=== PATIENT | female | born 1940 | race Caucasian/White ===

== ENCOUNTER 2019-06-13 12:55 | Emergency (ER) | payer MEDICARE, OTHER ==
[~2019-06-13] VITALS: Ht 152.4 cm; Wt 62.0 kg
[2019-06-13 13:07] VITALS: BP 131/103
== END 2019-06-13 15:04 | disposition home or self-care (01) ==
LOC: ER 12:56
DX: S93.492A Sprain of other ligament of left ankle, initial encounter (principal); X50.1XXA Overexertion from prolonged static or awkward postures, initial encounter; Y93.89 Activity, other specified; Y92.89 Other specified places as the place of occurrence of the external cause; Y99.8 Other external cause status
CPT/HCPCS: 73610; 73630; 99284

== ENCOUNTER 2020-02-06 20:39 | Emergency (ER) | payer MEDICARE, OTHER ==
[~2020-02-06] VITALS: Ht 152.4 cm; Wt 57.7 kg
[2020-02-06 21:22] VITALS: BP 162/65
== END 2020-02-06 21:15 | disposition home or self-care (01) ==
LOC: ER 20:40
DX: S20.212A Contusion of left front wall of thorax, initial encounter (principal); Z85.9 Personal history of malignant neoplasm, unspecified; W19.XXXA Unspecified fall, initial encounter; Y93.89 Activity, other specified; Y92.89 Other specified places as the place of occurrence of the external cause; Y99.8 Other external cause status
CPT/HCPCS: 71101; 99284

== ENCOUNTER 2021-03-13 21:46 | Emergency (ER) | payer MEDICARE, OTHER ==
[~2021-03-13] VITALS: Ht 165.1 cm; Wt 131.0 kg
[2021-03-13 22:20] VITALS: BP 105/66
== END 2021-03-14 01:16 | disposition left against medical advice (07) ==
LOC: ER 21:47
DX: M79.605 Pain in left leg (principal); Z53.21 Procedure and treatment not carried out due to patient leaving prior to being seen by health care provider

== ENCOUNTER 2021-04-04 13:57 | Outpatient (CLI) | payer MEDICARE, OTHER | END 2021-04-04 23:59 | disposition home or self-care (01) | LOC: CARD DIAG 13:57 | PROVIDERS: ATTEND Internal Medicine Medical Oncology | DX: Z01.818 Encounter for other preprocedural examination (principal); C46.0 Kaposi's sarcoma of skin | CPT/HCPCS: 93306 ==

== ENCOUNTER 2021-08-24 10:14 | Emergency (ER) | payer MEDICARE, OTHER ==
[~2021-08-24] VITALS: Ht 152.4 cm; Wt 58.0 kg
[2021-08-24 10:31] VITALS: BP 145/39
[2021-08-24] MEDS ORDERED: CASIRIVIMAB/IMDEVIMAB inject. 10 ML in normal saline 100ml IV soln 100 ML IV ONE (13:45)
[2021-08-24] MEDS ORDERED: BAMLANIVIMAB 700MG, ETESEVIMAB 1,400MG in NS 100mL (Total vol 160ml) IV ONE (13:50)
[2021-08-24] MEDS ORDERED: BUDE180A INH (14:09)
[2021-08-24] MEDS ORDERED: DEXA6TAB6 PO (14:09)
== END 2021-08-24 16:07 | disposition home or self-care (01) ==
LOC: ER 10:14
DX: U07.1 COVID-19 (principal); J02.9 Acute pharyngitis, unspecified; R05.9 Cough, unspecified; Z85.9 Personal history of malignant neoplasm, unspecified; Z79.899 Other long term (current) drug therapy
CPT/HCPCS: 87635; 99284; C9803; M0245; Q0245; Q0239

== ENCOUNTER 2022-02-20 11:03 | Emergency (ER) | payer MEDICARE, OTHER ==
[~2022-02-20] VITALS: Ht 152.4 cm; Wt 60.9 kg
[~2022-02-20 11:03] MED LIST: BUDE180A INH; DEXA6TAB6 PO
[2022-02-20 12:13] LABS: BASOPHILS % (AUTO) 0.7 % (0-1); EOSINOPHILS # (AUTO) 0.2 X10'3 (0-0.9); EOSINOPHILS % (AUTO) 2.7 % (0-6); HEMATOCRIT 38.6 % (35.0-45.0); HEMOGLOBIN 12.7 g/dl (12.0-16.0); LYMPHOCYTES # (AUTO) 1.6 X10'3 (1.1-4.8); LYMPHOCYTES % (AUTO) 22.4 % (21-51); MEAN CORPUSCULAR HEMOGLOBIN 25.8 PG (27.0-31.0); MEAN CORPUSCULAR HGB CONC 32.9 g/dL (33.0-36.5); MEAN CORPUSCULAR VOLUME 78.5 FL (78-98); MEAN PLATELET VOLUME 7.4 FL (7.4-10.4); MONOCYTES # (AUTO) 0.6 X10'3 (0-0.9); MONOCYTES % (AUTO) 8.8 % (2-12); NEUTROPHILS # (AUTO) 4.5 X10'3 (1.8-7.7); NEUTROPHILS % (AUTO) 65.4 % (42-75); PLATELET COUNT 257 X10'3 (140-440); RED BLOOD COUNT 4.92 X10'6 (4.20-5.60); RED CELL DISTRIBUTION WIDTH 16.5 % (11.5-14.5); WHITE BLOOD COUNT 6.9 X10'3 (4.5-11.0)
--- NOTE | 2022-02-20 12:23 | NUR ---
PATIENT BACK FROM CT SCAN AT THIS TIME.
[2022-02-20 12:26] LABS: ALANINE AMINOTRANSFERASE 16 U/L (12-78); ALBUMIN 3.3 G/DL (3.4-5.0); ALBUMIN/GLOBULIN RATIO 0.7 (1.1-1.5); ALKALINE PHOSPHATASE 95 IU/L (46-116); ANION GAP 6 (8-16); ASPARTATE AMINO TRANSFERASE 15 U/L (10-37); BILIRUBIN,TOTAL 0.4 MG/DL (0.1-1.0); BLOOD UREA NITROGEN 35 MG/DL (7-18); BUN/CREATININE RATIO 19.9 (6.6-38.0); CALCIUM 9.1 MG/DL (8.5-10.1); CHLORIDE 101 MMOL/L (99-107); CREATININE 1.76 MG/DL (0.40-0.90); GLUCOSE 70 MG/DL (70-104); POTASSIUM 4.2 MMOL/L (3.5-5.1); SODIUM 133 MMOL/L (135-145); TOTAL CARBON DIOXIDE 26.4 MMOL/L (24-32); TOTAL PROTEIN 8.3 G/DL (6.4-8.2); eGFR 28 ML/MIN
[2022-02-20 13:25] LABS: CLARITY,URINE SLIGHTLY CLOUDY (Clear); GLUCOSE, URINE NEGATIVE (Neg); KETONES,URINE NEGATIVE (Neg); LEUKOCYTE ESTERASE ,URINE SMALL (Neg); NITRITES, URINE NEGATIVE (Neg); OCCULT BLOOD,URINE NEGATIVE (Neg); PH,URINE 6.5 (4.8-8.0); PROTEIN,URINE 30 mg/dl (Neg)
[2022-02-20] MEDS ORDERED: normal saline 1000ML IV soln IVB ONE (13:30)
[2022-02-20 13:31] LABS: COLOR,URINE YELLOW (Yellow); UA COLLECTION TYPE NON-SPECIFIED
[2022-02-20 13:33] LABS: MUCUS STRANDS NONE SEEN /LPF (Neg); RBC,URINE NONE SEEN /HPF (0-2); SQUAMOUS EPITHELIAL CELL,UR MODERATE /LPF (FEW); WBC,URINE 50-100 /HPF (0-4)
[2022-02-20 13:34] LABS: BACTERIA,URINE 2+ /HPF (Neg)
[2022-02-20] MEDS: cloNIDine 0.1 mg tablet PO SCH ×3 (13:52→13:59)
[2022-02-20 14:24] VITALS: BP 168/67
[2022-02-20] MEDS ORDERED: cephalexin 250mg capsule PO ONE (14:30)
[2022-02-20] MEDS ORDERED: CEPH-585 PO (14:32)
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
== END 2022-02-20 14:40 | disposition home or self-care (01) ==
LOC: ER 11:04
DX: S09.90XA Unspecified injury of head, initial encounter (principal); S00.03XA Contusion of scalp, initial encounter; S00.81XA Abrasion of other part of head, initial encounter; N39.0 Urinary tract infection, site not specified; I10 Essential (primary) hypertension; E78.00 Pure hypercholesterolemia, unspecified; E03.9 Hypothyroidism, unspecified; Z86.73 Personal history of transient ischemic attack (TIA), and cerebral infarction without residual deficits; Z85.9 Personal history of malignant neoplasm, unspecified; Z79.2 Long term (current) use of antibiotics; Z79.899 Other long term (current) drug therapy; W19.XXXA Unspecified fall, initial encounter; Y93.89 Activity, other specified; Y92.89 Other specified places as the place of occurrence of the external cause; Y99.8 Other external cause status
CPT/HCPCS: 36415; 70450; 80053; 81001; 85025; 87077; 87088; 87186; 99284; J7030

== ENCOUNTER 2022-11-07 11:16 | Emergency (ER) | payer MEDICARE, OTHER ==
[~2022-11-07] VITALS: Ht 149.9 cm; Wt 57.7 kg
[~2022-11-07 11:16] MED LIST changes: -BUDE180A INH; +CLOP75TA34 PO; -DEXA6TAB6 PO; +FURO20TA4 PO; +INSU100I5 SQ; +INSU200I SQ; +LEVO88TA7 PO; +NOR5T PO; +SIMV-42 PO
--- NOTE | 2022-11-07 11:35 | NUR ---
pt in ct when triage report received.
[2022-11-07] MEDS ORDERED: dextrose 50%-water 50ml dispensing syringe IV ONE (11:49)
[2022-11-07 11:52] LABS: BASOPHILS % (AUTO) 0.3 % (0-1); EOSINOPHILS # (AUTO) 0.1 X10'3 (0-0.9); EOSINOPHILS % (AUTO) 1.4 % (0-6); HEMATOCRIT 33.5 % (35.0-45.0); HEMOGLOBIN 11.1 g/dl (12.0-16.0); LYMPHOCYTES % (AUTO) 12.1 % (21-51); MEAN CORPUSCULAR HEMOGLOBIN 26.3 PG (27.0-31.0); MEAN CORPUSCULAR HGB CONC 33.2 g/dL (33.0-36.5); MEAN CORPUSCULAR VOLUME 79.3 FL (78-98); MEAN PLATELET VOLUME 8.4 FL (7.4-10.4); MONOCYTES # (AUTO) 0.1 X10'3 (0-0.9); MONOCYTES % (AUTO) 1.6 % (2-12); NEUTROPHILS # (AUTO) 7.2 X10'3 (1.8-7.7); NEUTROPHILS % (AUTO) 84.6 % (42-75); PLATELET COUNT 242 X10'3 (140-440); RED BLOOD COUNT 4.22 X10'6 (4.20-5.60); RED CELL DISTRIBUTION WIDTH 16.3 % (11.5-14.5); WHITE BLOOD COUNT 8.5 X10'3 (4.5-11.0)
--- NOTE | 2022-11-07 11:53 | NUR ---
Informed MD of pt with glucose of 50, received VO Dr. Coppola to administer 1 amp Dextrose IV x 1 now.
[2022-11-07 12:07] LABS: ALANINE AMINOTRANSFERASE 22 U/L (12-78); ALBUMIN 3.1 G/DL (3.4-5.0); ALBUMIN/GLOBULIN RATIO 0.9 (1.1-1.5); ALKALINE PHOSPHATASE 61 IU/L (46-116); ANION GAP 9 (8-16); ASPARTATE AMINO TRANSFERASE 27 U/L (10-37); BILIRUBIN,TOTAL 0.5 MG/DL (0.1-1.0); BLOOD UREA NITROGEN 38 MG/DL (7-18); BUN/CREATININE RATIO 21.5 (6.6-38.0); CALCIUM 8.1 MG/DL (8.5-10.1); CHLORIDE 104 MMOL/L (99-107); CREATININE 1.77 MG/DL (0.40-0.90); GLUCOSE 55 MG/DL (70-104); POTASSIUM 4.2 MMOL/L (3.5-5.1); SODIUM 139 MMOL/L (135-145); TOTAL CARBON DIOXIDE 26.4 MMOL/L (24-32); TOTAL PROTEIN 6.7 G/DL (6.4-8.2); eGFR 27 ML/MIN
[2022-11-07 12:25] LABS: APTT 24 SECONDS (22-32)
--- NOTE | 2022-11-07 12:40 | NUR ---
Pt being taken to MRI.
[2022-11-07 12:52] LABS: ANISOCYTOSIS 1+; ELLIPTOCYTES FEW; MICROCYTOSIS 1+; PLATELET ESTIMATE NORMAL
[2022-11-07 12:53] LABS: BURR CELLS FEW
--- NOTE | 2022-11-07 13:50 | NUR ---
Patient had sips of water with and without straw, tolerated well. No cough or shortness of breath after giving water.
--- NOTE | 2022-11-07 15:50 | NUR ---
PT ATE 1 YOGURT, 1 APPLESAUSE, 1 CHEESE SLICE AND WITH CARTON OF SKIM MILK TO DRINK.
[2022-11-07 17:44] VITALS: BP 146/62
== END 2022-11-07 17:30 | disposition home or self-care (01) ==
LOC: ER 11:17
DX: E16.2 Hypoglycemia, unspecified (principal); E78.00 Pure hypercholesterolemia, unspecified; I10 Essential (primary) hypertension; E03.9 Hypothyroidism, unspecified; Z88.8 Allergy status to other drugs, medicaments and biological substances
CPT/HCPCS: 36415; 70450; 70551; 71045; 80053; 82948; 84484; 85008; 85025; 85610; 85730; 93005; 96374; 99285; J3490; 70552; A6258

== ENCOUNTER 2022-12-27 07:17 | Emergency (ER) | payer MEDICARE, OTHER ==
[~2022-12-27] VITALS: Ht 152.4 cm; Wt 55.5 kg
[2022-12-27 08:16] LABS: EOSINOPHILS % (AUTO) 0.2 % (0-6); HEMOGLOBIN 8.3 g/dl (12.0-16.0); LYMPHOCYTES # (AUTO) 0.8 X10'3 (1.1-4.8); MONOCYTES # (AUTO) 1.4 X10'3 (0-0.9); MONOCYTES % (AUTO) 19.7 % (2-12); NEUTROPHILS # (AUTO) 4.9 X10'3 (1.8-7.7); PLATELET COUNT 86 X10'3 (140-440); WHITE BLOOD COUNT 7.1 X10'3 (4.5-11.0)
[2022-12-27 08:17] LABS: BASOPHILS % (AUTO) 0.5 % (0-1); HEMATOCRIT 25.2 % (35.0-45.0); LYMPHOCYTES % (AUTO) 11.6 % (21-51); MEAN CORPUSCULAR HEMOGLOBIN 25.7 PG (27.0-31.0); MEAN CORPUSCULAR HGB CONC 32.9 g/dL (33.0-36.5); MEAN CORPUSCULAR VOLUME 78.2 FL (78-98); MEAN PLATELET VOLUME 8.6 FL (7.4-10.4); RED BLOOD COUNT 3.22 X10'6 (4.20-5.60); RED CELL DISTRIBUTION WIDTH 19.3 % (11.5-14.5)
[2022-12-27 08:26] LABS: ALANINE AMINOTRANSFERASE 10 U/L (12-78); ALBUMIN 2.1 G/DL (3.4-5.0); ALBUMIN/GLOBULIN RATIO 0.6 (1.1-1.5); ALKALINE PHOSPHATASE 71 IU/L (46-116); ANION GAP 9 (8-16); ASPARTATE AMINO TRANSFERASE 20 U/L (10-37); BILIRUBIN,TOTAL 1.8 MG/DL (0.1-1.0); BLOOD UREA NITROGEN 34 MG/DL (7-18); BUN/CREATININE RATIO 18.9 (6.6-38.0); CALCIUM 7.9 MG/DL (8.5-10.1); CHLORIDE 97 MMOL/L (99-107); GLUCOSE 215 MG/DL (70-104); POTASSIUM 3.6 MMOL/L (3.5-5.1); SODIUM 130 MMOL/L (135-145); TOTAL CARBON DIOXIDE 24.4 MMOL/L (24-32); TOTAL PROTEIN 5.4 G/DL (6.4-8.2); eGFR 27 ML/MIN
[2022-12-27 09:44] LABS: ANISOCYTOSIS 2+; MICROCYTOSIS 1+; PLATELET ESTIMATE DECREASED; TOTAL CELLS COUNTED 100
[2022-12-27 09:45] LABS: ELLIPTOCYTES FEW; HYPOCHROMASIA 1+
[2022-12-27 09:48] LABS: BURR CELLS FEW
--- NOTE | 2022-12-27 10:12 | NUR ---
pt up to [facility]
--- NOTE | 2022-12-27 11:21 | NUR ---
Telephone call from BERNARD Choi, states she will see patient next. Dr Michele dow.
--- NOTE | 2022-12-27 11:29 | NUR ---
LEATHA FROM CASE MANAGEMENT CAN HELP SET UP WITH HOME HEALTH STATES SHE DOESN'T HAVE ADMITTING CRITERIA FOR THE HOSPITAL
--- NOTE | 2022-12-27 11:56 | NUR ---
PER DR MALLOY DO NOT STRAIGHT CATH FOR URINE SAMPLE, PT USED COMMODE BUT CONTAMINATED WITH FECES
--- NOTE | 2022-12-27 11:57 | NUR ---
Asked to arrange for some help w/ this pt at home. Pt does not have admitting criteria for the hospital so we could not refer her to short term rehab. H/H orders given to dcp for assignment. Continue to monitor.
--- NOTE | 2022-12-27 12:04 | NUR ---
CASE MANAGEMENT AT BEDSIDE
[2022-12-27 13:27] VITALS: BP 122/49
== END 2022-12-27 13:35 | disposition home or self-care (01) ==
LOC: ER 07:18
DX: R53.1 Weakness (principal); R42 Dizziness and giddiness; R05.9 Cough, unspecified
CPT/HCPCS: 36415; 71045; 80053; 83605; 84145; 85007; 85025; 87040; 93005; 99285

== ENCOUNTER 2023-08-03 23:39 | Inpatient (IN) | payer MEDICARE, OTHER ==
[~2023-08-03] VITALS: Ht 152.4 cm; Wt 53.2 kg
[2023-08-04 03:18] LABS: BASOPHILS # (AUTO) 0.1 X10'3 (0-0.2); BASOPHILS % (AUTO) 0.8 % (0-1); EOSINOPHILS # (AUTO) 0.2 X10'3 (0-0.9); EOSINOPHILS % (AUTO) 3.9 % (0-6); HEMATOCRIT 30.3 % (35.0-45.0); HEMOGLOBIN 9.8 g/dl (12.0-16.0); LYMPHOCYTES # (AUTO) 1.7 X10'3 (1.1-4.8); LYMPHOCYTES % (AUTO) 26.8 % (21-51); MEAN CORPUSCULAR HGB CONC 32.3 g/dL (33.0-36.5); MEAN CORPUSCULAR VOLUME 80.6 FL (78-98); MEAN PLATELET VOLUME 8.1 FL (7.4-10.4); MONOCYTES # (AUTO) 0.9 X10'3 (0-0.9); MONOCYTES % (AUTO) 14.7 % (2-12); NEUTROPHILS # (AUTO) 3.4 X10'3 (1.8-7.7); NEUTROPHILS % (AUTO) 53.8 % (42-75); PLATELET COUNT 236 X10'3 (140-440); RED BLOOD COUNT 3.76 X10'6 (4.20-5.60); RED CELL DISTRIBUTION WIDTH 15.2 % (11.5-14.5); WHITE BLOOD COUNT 6.3 X10'3 (4.5-11.0)
[2023-08-04 03:22] LABS: ALANINE AMINOTRANSFERASE 16 U/L (12-78); ALBUMIN 3.2 G/DL (3.4-5.0); ALBUMIN/GLOBULIN RATIO 0.7 (1.1-1.5); ALKALINE PHOSPHATASE 78 IU/L (46-116); ANION GAP 8 (8-16); ASPARTATE AMINO TRANSFERASE 17 U/L (10-37); BILIRUBIN,TOTAL 0.4 MG/DL (0.1-1.0); BLOOD UREA NITROGEN 50 MG/DL (7-18); BUN/CREATININE RATIO 21.6 (10.0-20.0); CALCIUM 9.9 MG/DL (8.5-10.1); CHLORIDE 101 MMOL/L (99-107); CREATININE 2.32 MG/DL (0.40-0.90); POTASSIUM 5.3 MMOL/L (3.5-5.1); SODIUM 128 MMOL/L (135-145); TOTAL CARBON DIOXIDE 19.5 MMOL/L (24-32); TOTAL PROTEIN 8.1 G/DL (6.4-8.2); eCRCL 13 ML/MIN; eGFR 20 ML/MIN
[2023-08-04 03:33] LABS: GLUCOSE 194 MG/DL (70-104)
[2023-08-04] MEDS ORDERED: normal saline 1000ML IV soln IVB ONE (05:00)
[2023-08-04 06:09] LABS: BILIRUBIN,URINE NEGATIVE (Neg); CLARITY,URINE SLIGHTLY CLOUDY (Clear); COLOR,URINE YELLOW (Yellow); GLUCOSE, URINE NEGATIVE (Neg); KETONES,URINE NEGATIVE (Neg); LEUKOCYTE ESTERASE ,URINE SMALL (Neg); NITRITES, URINE NEGATIVE (Neg); OCCULT BLOOD,URINE NEGATIVE (Neg); PH,URINE 5.5 (4.8-8.0); PROTEIN,URINE 30 mg/dl (Neg); UROBILINOGEN,URINE 0.2 E.U/dL (0.2-1.0)
[2023-08-04 06:10] LABS: UA COLLECTION TYPE CLN CATCH MIDSTREAM
[2023-08-04 06:18] LABS: MUCUS STRANDS FEW /LPF (Neg); SQUAMOUS EPITHELIAL CELL,UR FEW /LPF (FEW)
[2023-08-04 06:19] LABS: TRANSITIONAL EPI CELLS,URINE FEW /HPF
[2023-08-04 06:20] LABS: BACTERIA,URINE FEW /HPF (Neg); RBC,URINE NONE SEEN /HPF (0-2)
[2023-08-04] MEDS ORDERED: CefTRIAXone/D5W-Rocephin 1gm 50 ML IV STA (07:05)
[2023-08-04] MEDS: morphine 2 MG/ML inj. syringe IV PRN ×2 (08:59→17:29)
[2023-08-04] MEDS ORDERED: acetaminophen 325mg tablet PO PRN (09:20)
[2023-08-04] MEDS ORDERED: potassium Cl 40MEQ/1/2NS 520ml 520 ML IV PRN (09:20)
[2023-08-04] MEDS ORDERED: potassium Cl 20 mEq SR tablet PO PRN ×2 (09:20)
[2023-08-04] MEDS ORDERED: magnesium 4gm in 100ml NS 100 ML IV PRN (09:20)
[2023-08-04] MEDS ORDERED: magnesium Cl slow-release 64mg tablet PO PRN (09:20)
[2023-08-04] MEDS ORDERED: ondansetron/PF 4mg/2ml inj IV PRN (09:20)
[2023-08-04] MEDS ORDERED: magnesium 2GM in 50ml NS 50 ML IV PRN (09:20)
[2023-08-04 09:37] LABS: ALANINE AMINOTRANSFERASE 16 U/L (12-78); ALBUMIN 2.9 G/DL (3.4-5.0); ALBUMIN/GLOBULIN RATIO 0.7 (1.1-1.5); ALKALINE PHOSPHATASE 66 IU/L (46-116); ANION GAP 8 (8-16); ASPARTATE AMINO TRANSFERASE 12 U/L (10-37); BILIRUBIN,TOTAL 0.3 MG/DL (0.1-1.0); BLOOD UREA NITROGEN 48 MG/DL (7-18); BUN/CREATININE RATIO 21.1 (10.0-20.0); CALCIUM 9.1 MG/DL (8.5-10.1); CHLORIDE 106 MMOL/L (99-107); CREATININE 2.27 MG/DL (0.40-0.90); GLUCOSE 145 MG/DL (70-104); POTASSIUM 4.8 MMOL/L (3.5-5.1); SODIUM 134 MMOL/L (135-145); TOTAL CARBON DIOXIDE 19.8 MMOL/L (24-32); TOTAL PROTEIN 7.3 G/DL (6.4-8.2); eCRCL 13 ML/MIN; eGFR 20 ML/MIN
[2023-08-04] MEDS: normal saline 1000ml 1,000 ML IV SCH ×2 (12:17→19:20)
[2023-08-04] MEDS: K and/or MAG REPLACEMENT MC SCH (20:00)
[2023-08-05 07:08] LABS: BASOPHILS % (AUTO) 0.5 % (0-1); EOSINOPHILS # (AUTO) 0.3 X10'3 (0-0.9); EOSINOPHILS % (AUTO) 5.1 % (0-6); HEMATOCRIT 27.7 % (35.0-45.0); LYMPHOCYTES # (AUTO) 1.3 X10'3 (1.1-4.8); LYMPHOCYTES % (AUTO) 24.2 % (21-51); MEAN CORPUSCULAR HEMOGLOBIN 26.2 PG (27.0-31.0); MEAN CORPUSCULAR HGB CONC 32.6 g/dL (33.0-36.5); MEAN CORPUSCULAR VOLUME 80.3 FL (78-98); MONOCYTES # (AUTO) 0.8 X10'3 (0-0.9); MONOCYTES % (AUTO) 15.5 % (2-12); NEUTROPHILS # (AUTO) 2.9 X10'3 (1.8-7.7); NEUTROPHILS % (AUTO) 54.7 % (42-75); PLATELET COUNT 215 X10'3 (140-440); RED BLOOD COUNT 3.45 X10'6 (4.20-5.60); RED CELL DISTRIBUTION WIDTH 15.7 % (11.5-14.5); WHITE BLOOD COUNT 5.4 X10'3 (4.5-11.0)
[2023-08-05 07:14] LABS: ALBUMIN 2.5 G/DL (3.4-5.0); ANION GAP 8 (8-16); BLOOD UREA NITROGEN 44 MG/DL (7-18); BUN/CREATININE RATIO 22.1 (10.0-20.0); CHLORIDE 106 MMOL/L (99-107); CREATININE 1.99 MG/DL (0.40-0.90); GLUCOSE 144 MG/DL (70-104); MAGNESIUM 1.4 MG/DL (1.5-2.4); POTASSIUM 5.3 MMOL/L (3.5-5.1); SODIUM 133 MMOL/L (135-145); TOTAL CARBON DIOXIDE 18.6 MMOL/L (24-32); eCRCL 15 ML/MIN; eGFR 24 ML/MIN
[2023-08-05 08:23] LABS: SMUDGE CELLS FEW; TOTAL CELLS COUNTED 100
[2023-08-05 08:24] LABS: BURR CELLS FEW; ELLIPTOCYTES FEW; PLATELET ESTIMATE NORMAL
[2023-08-05] MEDS: K and/or MAG REPLACEMENT MC SCH (09:59)
[2023-08-05] MEDS: normal saline 1000ml 1,000 ML IV SCH ×2 (10:10→20:07)
[2023-08-05] MEDS ORDERED: INSU100I8 SQ (14:50)
[2023-08-05] MEDS ORDERED: AMLO5TAB16 PO (14:50)
[2023-08-05] MEDS ORDERED: CARV25TA56 PO (14:50)
[2023-08-06] MEDS: normal saline 1000ml 1,000 ML IV SCH ×3 (01:20→21:20)
[2023-08-06] MEDS ORDERED: MESSAGE TO PHARMACY PO ONE (01:45)
[2023-08-06] MEDS ORDERED: insulin Lispro (HumaLOG) vial - multi-dose SQ SCH (01:45)
[2023-08-06] MEDS ORDERED: DEXTROSE 15 GM of carb/4 tabs (each vial/BOTTLE has 4 tablets) PO PRN ×2 (01:45)
[2023-08-06] MEDS ORDERED: glucagon, human recombinant 1mg kit SUBCUT PRN (01:45)
[2023-08-06] MEDS ORDERED: dextrose 50%-water 50ml dispensing syringe IV PRN ×2 (01:45)
[2023-08-06 08:00] LABS: BASOPHILS % (AUTO) 0.7 % (0-1); EOSINOPHILS # (AUTO) 0.3 X10'3 (0-0.9); EOSINOPHILS % (AUTO) 5.3 % (0-6); LYMPHOCYTES # (AUTO) 1.3 X10'3 (1.1-4.8); LYMPHOCYTES % (AUTO) 24.8 % (21-51); MEAN CORPUSCULAR HEMOGLOBIN 26.2 PG (27.0-31.0); MEAN CORPUSCULAR HGB CONC 32.3 g/dL (33.0-36.5); MEAN CORPUSCULAR VOLUME 81.1 FL (78-98); MEAN PLATELET VOLUME 7.9 FL (7.4-10.4); MONOCYTES # (AUTO) 0.8 X10'3 (0-0.9); NEUTROPHILS # (AUTO) 2.8 X10'3 (1.8-7.7); NEUTROPHILS % (AUTO) 54.2 % (42-75); PLATELET COUNT 198 X10'3 (140-440); RED BLOOD COUNT 3.45 X10'6 (4.20-5.60); RED CELL DISTRIBUTION WIDTH 15.8 % (11.5-14.5); WHITE BLOOD COUNT 5.2 X10'3 (4.5-11.0)
[2023-08-06 08:05] LABS: ALBUMIN 2.4 G/DL (3.4-5.0); ANION GAP 10 (8-16); BLOOD UREA NITROGEN 35 MG/DL (7-18); CHLORIDE 109 MMOL/L (99-107); CREATININE 1.75 MG/DL (0.40-0.90); GLUCOSE 139 MG/DL (70-104); MAGNESIUM 1.4 MG/DL (1.5-2.4); SODIUM 137 MMOL/L (135-145); TOTAL CARBON DIOXIDE 17.6 MMOL/L (24-32); eCRCL 17 ML/MIN; eGFR 28 ML/MIN
[2023-08-06 08:30] LABS: TOTAL CELLS COUNTED 100
[2023-08-06 08:31] LABS: PLATELET ESTIMATE NORMAL
[2023-08-06 08:33] LABS: BURR CELLS FEW; LARGE PLATELETS FEW; SMUDGE CELLS FEW
[2023-08-06 10:38] VITALS: BP 148/64; PULSE 78; RESP 20; TEMP 98.8; O2SAT 100
[2023-08-06 11:30] VITALS: BP 159/37; PULSE 69; RESP 16; TEMP 97.9; O2SAT 97
[2023-08-06 11:50] LABS: CHOL/HDL RATIO 8.6 (0.00-4.99); CHOLESTEROL 120 MG/DL (0-200); HDL CHOLESTEROL 14 MG/DL (35-60); LDL CHOLESTEROL 76 MG/DL (50-100); TRIGLYCERIDES 135 MG/DL (20-135)
[2023-08-06] MEDS ORDERED: aspirin 325mg tablet PO ONE (12:20)
[2023-08-06] MEDS: levoTHYROXINE 88mcg tablet PO SCH (12:39)
[2023-08-06] MEDS: clopidogrel 75mg tablet PO SCH (12:40)
[2023-08-06] MEDS: amLODIPine 5mg tablet PO SCH (12:40)
[2023-08-06 15:00] VITALS: BP 136/49; PULSE 69; RESP 20; TEMP 97.9; O2SAT 99
[2023-08-06 18:00] VITALS: BP 161/58; PULSE 76; RESP 18; TEMP 98.2; O2SAT 100
[2023-08-06 20:00] VITALS: RESP 18; O2SAT 97
[2023-08-06] MEDS: carVEDilol 12.5mg tablet PO SCH (20:15)
[2023-08-06] MEDS ORDERED: insulin glargine (Lantus) pen - multi-dose SQ SCH (21:00)
[2023-08-06] MEDS ORDERED: atorvastatin 10mg tablet PO SCH ×2 (21:00)
[2023-08-06 22:00] VITALS: BP 165/59; PULSE 79; RESP 18; TEMP 97.4; O2SAT 97
[2023-08-07 02:00] VITALS: BP 143/48; PULSE 71; RESP 18; TEMP 98.2; O2SAT 99
[2023-08-07] MEDS: normal saline 1000ml 1,000 ML IV SCH (02:04)
[2023-08-07 07:01] VITALS: BP 155/62; PULSE 62; RESP 18; TEMP 97.5; O2SAT 95
[2023-08-07 07:30] LABS: EOSINOPHILS # (AUTO) 0.2 X10'3 (0-0.9); HEMATOCRIT 28.6 % (35.0-45.0); HEMOGLOBIN 9.2 g/dl (12.0-16.0); LYMPHOCYTES # (AUTO) 1.2 X10'3 (1.1-4.8); LYMPHOCYTES % (AUTO) 24.6 % (21-51); MEAN CORPUSCULAR HEMOGLOBIN 25.9 PG (27.0-31.0); MONOCYTES # (AUTO) 0.6 X10'3 (0-0.9); MONOCYTES % (AUTO) 12.2 % (2-12); NEUTROPHILS # (AUTO) 2.8 X10'3 (1.8-7.7); NEUTROPHILS % (AUTO) 57.2 % (42-75); PLATELET COUNT 195 X10'3 (140-440); RED BLOOD COUNT 3.54 X10'6 (4.20-5.60); RED CELL DISTRIBUTION WIDTH 15.9 % (11.5-14.5); WHITE BLOOD COUNT 4.9 X10'3 (4.5-11.0)
[2023-08-07] MEDS ORDERED: furosemide 20MG tablet PO SCH (08:00)
[2023-08-07] MEDS: levoTHYROXINE 88mcg tablet PO SCH (08:14)
[2023-08-07] MEDS: clopidogrel 75mg tablet PO SCH (08:14)
[2023-08-07] MEDS: amLODIPine 5mg tablet PO SCH (08:15)
[2023-08-07] MEDS: carVEDilol 12.5mg tablet PO SCH (08:15)
[2023-08-07 08:17] LABS: ALBUMIN 2.5 G/DL (3.4-5.0); ANION GAP 10 (8-16); BLOOD UREA NITROGEN 32 MG/DL (7-18); BUN/CREATININE RATIO 18.9 (10.0-20.0); CALCIUM 8.9 MG/DL (8.5-10.1); CHLORIDE 107 MMOL/L (99-107); CREATININE 1.69 MG/DL (0.40-0.90); GLUCOSE 158 MG/DL (70-104); MAGNESIUM 1.4 MG/DL (1.5-2.4); POTASSIUM 4.7 MMOL/L (3.5-5.1); SODIUM 135 MMOL/L (135-145); TOTAL CARBON DIOXIDE 17.6 MMOL/L (24-32); eCRCL 17 ML/MIN; eGFR 29 ML/MIN
[2023-08-07 10:33] VITALS: RESP 16; O2SAT 95
[2023-08-07 10:48] LABS: THYROID STIMULATING HORMONE 3.17 ulU/ml (0.34-4.50)
[2023-08-07] MEDS ORDERED: potassium Cl 40MEQ/1/2NS 520ml 520 ML IV PRN (10:50)
[2023-08-07] MEDS ORDERED: potassium Cl 20 mEq SR tablet PO PRN ×2 (10:50)
[2023-08-07] MEDS ORDERED: magnesium 4gm in 100ml NS 100 ML IV PRN (10:50)
[2023-08-07] MEDS ORDERED: magnesium 2GM in 50ml NS 50 ML IV PRN (10:50)
[2023-08-07 11:00] VITALS: BP 145/50; PULSE 69; RESP 16; TEMP 98; O2SAT 100
[2023-08-07] MEDS ORDERED: magnesium Cl slow-release 64mg tablet PO PRN (11:20)
== END 2023-08-07 15:16 | disposition home health service (06) | DRG 64 ==
LOC: ER 23:41 → ED HOLD 08-04 09:22 → EDBEDREQ 08-05 19:43 → PCU 3S 08-06 07:53
PROVIDERS: ADMIT Internal Medicine; ATTEND Internal Medicine
DX: I63.9 Cerebral infarction, unspecified (principal); N17.0 Acute kidney failure with tubular necrosis; N39.0 Urinary tract infection, site not specified; E87.1 Hypo-osmolality and hyponatremia; D64.9 Anemia, unspecified; N18.9 Chronic kidney disease, unspecified; E11.22 Type 2 diabetes mellitus with diabetic chronic kidney disease; M79.605 Pain in left leg; H53.8 Other visual disturbances; E03.9 Hypothyroidism, unspecified; E86.0 Dehydration; E78.00 Pure hypercholesterolemia, unspecified; I12.9 Hypertensive chronic kidney disease with stage 1 through stage 4 chronic kidney disease, or unspecified chronic kidney disease; Z86.73 Personal history of transient ischemic attack (TIA), and cerebral infarction without residual deficits; Z85.89 Personal history of malignant neoplasm of other organs and systems; Z79.4 Long term (current) use of insulin; Z88.8 Allergy status to other drugs, medicaments and biological substances; Z79.899 Other long term (current) drug therapy
CPT/HCPCS: 36415; 70544; 70551; 80048; 80053; 80061; 81001; 82948; 83036; 83735; 84145; 84443; 85007; 85025; 87081; 87088; 92508; 92616; 93306; 97161; 97530; 99285; A6250; A6258; A6449; G0378; J0696; J1815; J2270; J7030

== ENCOUNTER 2023-12-10 15:40 | Inpatient (IN) | payer MEDICARE, MEDICAID ==
[~2023-12-10] VITALS: Ht 157.5 cm; Wt 51.1 kg
[~2023-12-10 15:40] MED LIST changes: +AMLO5TAB16 PO; +CARV25TA56 PO; -INSU100I5 SQ; +INSU100I8 SQ; -INSU200I SQ; -NOR5T PO
[2023-12-10 16:05] LABS: BASOPHILS # (AUTO) 0.1 X10'3 (0-0.2); BASOPHILS % (AUTO) 1.2 % (0-1); EOSINOPHILS # (AUTO) 0.2 X10'3 (0-0.9); EOSINOPHILS % (AUTO) 4.2 % (0-6); HEMATOCRIT 29.7 % (35.0-45.0); HEMOGLOBIN 9.6 g/dl (12.0-16.0); LYMPHOCYTES # (AUTO) 1.2 X10'3 (1.1-4.8); LYMPHOCYTES % (AUTO) 26.2 % (21-51); MEAN CORPUSCULAR HEMOGLOBIN 26.3 PG (27.0-31.0); MEAN CORPUSCULAR HGB CONC 32.2 g/dL (33.0-36.5); MEAN CORPUSCULAR VOLUME 81.8 FL (78-98); MEAN PLATELET VOLUME 7.9 FL (7.4-10.4); MONOCYTES # (AUTO) 0.7 X10'3 (0-0.9); MONOCYTES % (AUTO) 15.5 % (2-12); NEUTROPHILS # (AUTO) 2.4 X10'3 (1.8-7.7); NEUTROPHILS % (AUTO) 52.9 % (42-75); PLATELET COUNT 184 X10'3 (140-440); RED BLOOD COUNT 3.63 X10'6 (4.20-5.60); RED CELL DISTRIBUTION WIDTH 16.6 % (11.5-14.5); WHITE BLOOD COUNT 4.5 X10'3 (4.5-11.0)
[2023-12-10 16:20] LABS: APTT 23 SECONDS (22-32); PROTHROMBIN TIME 11.1 SECONDS (9.0-12.0)
[2023-12-10 16:23] LABS: ALBUMIN 2.7 G/DL (3.4-5.0); ANION GAP 4 (8-16); BLOOD UREA NITROGEN 38 MG/DL (7-18); CALCIUM 8.6 MG/DL (8.5-10.1); CHLORIDE 102 MMOL/L (99-107); POTASSIUM 4.5 MMOL/L (3.5-5.1); SODIUM 132 MMOL/L (135-145); eCRCL 17 ML/MIN; eGFR 25 ML/MIN
[2023-12-10 16:24] LABS: GLUCOSE 239 MG/DL (70-104)
[2023-12-10] MEDS: normal saline 1000ML IV soln IVB ONE (16:50)
[2023-12-10 17:32] LABS: AMMONIA < 10 UMOL/L (11-32)
[2023-12-10] MEDS: aspirin 325mg tablet PO ONE (17:33)
[2023-12-10 17:38] LABS: LACTIC SEPSIS 1.7 MMOL/L (0.4-2.0)
[2023-12-10] MEDS: PERFLUTREN PROTEIN-A MICROSPHR (Optison) 0.22 MG/ML 3ML VIAL IV ONE (17:40)
[2023-12-10] MEDS: normal saline 1000ml 1,000 ML IV SCH (17:40)
[2023-12-10] MEDS ORDERED: ondansetron/PF 4mg/2ml inj IV PRN (17:40)
[2023-12-10] MEDS ORDERED: acetaminophen 325mg tablet PO PRN (17:40)
[2023-12-10] MEDS ORDERED: potassium Cl 40MEQ/1/2NS 520ml 520 ML IV PRN (17:40)
[2023-12-10] MEDS ORDERED: potassium Cl 20 mEq SR tablet PO PRN ×2 (17:40)
[2023-12-10 17:41] LABS: ETHANOL < 10 MG/DL (<10)
[2023-12-10] MEDS: K and/or MAG REPLACEMENT MC SCH (20:00)
[2023-12-10] MEDS ORDERED: glucagon, human recombinant 1mg kit SUBCUT PRN (22:35)
[2023-12-10] MEDS ORDERED: dextrose 50%-water 50ml dispensing syringe IV PRN ×2 (22:35)
[2023-12-10] MEDS ORDERED: insulin Lispro (HumaLOG) vial - multi-dose SQ SCH (22:35)
[2023-12-10] MEDS ORDERED: DEXTROSE 15 GM of carb/4 tabs (each vial/BOTTLE has 4 tablets) PO PRN ×2 (22:35)
[2023-12-10] MEDS ORDERED: PERFLUTREN PROTEIN-A MICROSPHR (Optison) 0.22 MG/ML 3ML VIAL IV PRN (22:55)
[2023-12-10] MEDS: MESSAGE TO PHARMACY PO ONE (22:59)
[2023-12-10 23:17] LABS: HEMOGLOBIN A1C 6.7 % (4.5-6.2)
[2023-12-11 01:14] VITALS: BP 155/49; PULSE 63; RESP 16; TEMP 97.9; O2SAT 100
[2023-12-11 02:00] VITALS: BP 121/38; PULSE 59; RESP 20; TEMP 97.4; O2SAT 98
[2023-12-11 02:02] VITALS: RESP 16; O2SAT 100
[2023-12-11 07:00] VITALS: BP 139/39; PULSE 57; RESP 13; TEMP 97.6; O2SAT 100
[2023-12-11 07:34] LABS: BASOPHILS % (AUTO) 1.2 % (0-1); EOSINOPHILS # (AUTO) 0.2 X10'3 (0-0.9); EOSINOPHILS % (AUTO) 5.4 % (0-6); HEMATOCRIT 27.2 % (35.0-45.0); HEMOGLOBIN 8.8 g/dl (12.0-16.0); LYMPHOCYTES # (AUTO) 1.3 X10'3 (1.1-4.8); LYMPHOCYTES % (AUTO) 30.1 % (21-51); MEAN CORPUSCULAR HEMOGLOBIN 26.4 PG (27.0-31.0); MEAN CORPUSCULAR HGB CONC 32.3 g/dL (33.0-36.5); MEAN CORPUSCULAR VOLUME 81.8 FL (78-98); MEAN PLATELET VOLUME 8.1 FL (7.4-10.4); MONOCYTES # (AUTO) 0.6 X10'3 (0-0.9); MONOCYTES % (AUTO) 13.9 % (2-12); NEUTROPHILS # (AUTO) 2.1 X10'3 (1.8-7.7); NEUTROPHILS % (AUTO) 49.4 % (42-75); PLATELET COUNT 172 X10'3 (140-440); RED BLOOD COUNT 3.33 X10'6 (4.20-5.60); RED CELL DISTRIBUTION WIDTH 16.7 % (11.5-14.5); WHITE BLOOD COUNT 4.2 X10'3 (4.5-11.0)
[2023-12-11 07:50] LABS: ALBUMIN 2.7 G/DL (3.4-5.0); ANION GAP 9 (8-16); BLOOD UREA NITROGEN 39 MG/DL (7-18); BUN/CREATININE RATIO 22.8 (10.0-20.0); CALCIUM 9.2 MG/DL (8.5-10.1); CHLORIDE 107 MMOL/L (99-107); CREATININE 1.71 MG/DL (0.40-0.90); GLUCOSE 199 MG/DL (70-104); MAGNESIUM 1.4 MG/DL (1.5-2.4); POTASSIUM 4.3 MMOL/L (3.5-5.1); SODIUM 137 MMOL/L (135-145); TOTAL CARBON DIOXIDE 20.9 MMOL/L (24-32); eCRCL 19 ML/MIN; eGFR 28 ML/MIN
[2023-12-11 08:00] VITALS: BP 164/50; PULSE 60; RESP 16; TEMP 97.7; O2SAT 100
[2023-12-11] MEDS: LORazepam 2 mg/ml vial IV ONE (11:27)
[2023-12-11 15:00] VITALS: BP 164/50; PULSE 60; RESP 20; TEMP 97.7; O2SAT 99
[2023-12-11] MEDS: clopidogrel 300mg tablet PO ONE (15:32)
[2023-12-11] MEDS: magnesium Cl slow-release 64mg tablet PO PRN (17:13)
[2023-12-11] MEDS: atorvastatin 10mg tablet PO SCH (21:00)
[2023-12-11] MEDS: insulin glargine (Lantus) pen - multi-dose SQ SCH (21:00)
[2023-12-11] MEDS: LORazepam 1 MG tablet PO PRN (21:57)
[2023-12-11] MEDS: Melatonin 3mg tablet PO SCH (23:56)
[2023-12-12] VITALS (7 sets, daily range): BP systolic 107–182; BP diastolic 50–86; PULSE 57–67; RESP 12–18; TEMP 96.9–98.3; O2SAT 94–100
[2023-12-12 07:21] LABS: EOSINOPHILS # (AUTO) 0.2 X10'3 (0-0.9); HEMATOCRIT 27.1 % (35.0-45.0); HEMOGLOBIN 8.9 g/dl (12.0-16.0); LYMPHOCYTES # (AUTO) 1.2 X10'3 (1.1-4.8); LYMPHOCYTES % (AUTO) 27.1 % (21-51); MEAN CORPUSCULAR HEMOGLOBIN 26.6 PG (27.0-31.0); MEAN CORPUSCULAR HGB CONC 32.7 g/dL (33.0-36.5); MEAN CORPUSCULAR VOLUME 81.5 FL (78-98); MEAN PLATELET VOLUME 8.1 FL (7.4-10.4); MONOCYTES # (AUTO) 0.6 X10'3 (0-0.9); MONOCYTES % (AUTO) 13.5 % (2-12); NEUTROPHILS # (AUTO) 2.4 X10'3 (1.8-7.7); NEUTROPHILS % (AUTO) 54.4 % (42-75); PLATELET COUNT 165 X10'3 (140-440); RED BLOOD COUNT 3.33 X10'6 (4.20-5.60); RED CELL DISTRIBUTION WIDTH 16.3 % (11.5-14.5); WHITE BLOOD COUNT 4.5 X10'3 (4.5-11.0)
[2023-12-12 07:36] LABS: ALBUMIN 2.5 G/DL (3.4-5.0); ANION GAP 5 (8-16); BLOOD UREA NITROGEN 37 MG/DL (7-18); BUN/CREATININE RATIO 23.7 (10.0-20.0); CALCIUM 9.1 MG/DL (8.5-10.1); CHLORIDE 107 MMOL/L (99-107); CHOL/HDL RATIO 7.8 (0.00-4.99); CHOLESTEROL 93 MG/DL (0-200); CREATININE 1.56 MG/DL (0.40-0.90); HDL CHOLESTEROL 12 MG/DL (35-60); LDL CHOLESTEROL 51 MG/DL (50-100); MAGNESIUM 1.3 MG/DL (1.5-2.4); POTASSIUM 4.7 MMOL/L (3.5-5.1); SODIUM 138 MMOL/L (135-145); TOTAL CARBON DIOXIDE 25.8 MMOL/L (24-32); TRIGLYCERIDES 173 MG/DL (20-135); eCRCL 21 ML/MIN; eGFR 32 ML/MIN
[2023-12-12 07:46] LABS: GLUCOSE 147 MG/DL (70-104)
[2023-12-12] MEDS: levoTHYROXINE 88mcg tablet PO SCH (09:29)
[2023-12-12] MEDS: clopidogrel 75mg tablet PO SCH (09:29)
[2023-12-12] MEDS: magnesium 4gm in 100ml NS 100 ML IV PRN (09:49)
[2023-12-12 10:09] LABS: BILIRUBIN,URINE NEGATIVE (Neg); CLARITY,URINE SLIGHTLY CLOUDY (Clear); COLOR,URINE YELLOW (Yellow); GLUCOSE, URINE NEGATIVE (Neg); KETONES,URINE NEGATIVE (Neg); LEUKOCYTE ESTERASE ,URINE TRACE (Neg); NITRITES, URINE NEGATIVE (Neg); OCCULT BLOOD,URINE NEGATIVE (Neg); PROTEIN,URINE 100 mg/dl (Neg); UROBILINOGEN,URINE 0.2 E.U/dL (0.2-1.0)
[2023-12-12 10:11] LABS: UA COLLECTION TYPE NON-SPECIFIED
[2023-12-12 10:36] LABS: BACTERIA,URINE 1+ /HPF (Neg)
[2023-12-12 10:37] LABS: RBC,URINE 0-2 /HPF (0-2); WBC,URINE 30-50 /HPF (0-4)
[2023-12-12 10:38] LABS: HYALINE CASTS 0-3 /LPF (NEGATIVE)
[2023-12-12 10:46] LABS: TRANSITIONAL EPI CELLS,URINE FEW /HPF; URINE AMPHETAMINE SCREEN NEGATIVE (Neg); URINE BARBITUATE SCREEN NEGATIVE (Neg); URINE BENZODIAZEPINES SCREEN NEGATIVE (Neg); URINE CANNABINOID SCREEN NEGATIVE (Neg); URINE COCAINE SCREEN NEGATIVE (Neg); URINE METHADONE SCREEN NEGATIVE (Neg); URINE OPIATE SCREEN NEGATIVE (Neg); URINE PHENCYCLIDINE SCREEN NEGATIVE (Neg)
[2023-12-12 10:49] LABS: SQUAMOUS EPITHELIAL CELL,UR MODERATE /LPF (FEW)
[2023-12-12] MEDS: magnesium 2GM in 50ml NS 50 ML IV PRN (13:36)
[2023-12-12] MEDS: CefTRIAXone/D5W-Rocephin 1gm 50 ML IV ONE (16:22)
[2023-12-12] MEDS ORDERED: ziprasidone IM 20mg inj **IM only IM PRN (16:45)
[2023-12-12] MEDS: aspirin 81mg, enteric-coated 1 TAB TABLET.DR PO SCH (20:17)
[2023-12-13] VITALS (8 sets, daily range): BP systolic 136–164; BP diastolic 43–70; PULSE 61–72; RESP 13–23; TEMP 97.1–98.3; O2SAT 93–99
[2023-12-13 06:52] LABS: BASOPHILS # (AUTO) 0.1 X10'3 (0-0.2); BASOPHILS % (AUTO) 1.1 % (0-1); EOSINOPHILS # (AUTO) 0.3 X10'3 (0-0.9); EOSINOPHILS % (AUTO) 5.4 % (0-6); HEMATOCRIT 28.2 % (35.0-45.0); HEMOGLOBIN 9.1 g/dl (12.0-16.0); LYMPHOCYTES # (AUTO) 1.1 X10'3 (1.1-4.8); MEAN CORPUSCULAR HEMOGLOBIN 26.4 PG (27.0-31.0); MEAN CORPUSCULAR HGB CONC 32.2 g/dL (33.0-36.5); MONOCYTES # (AUTO) 0.7 X10'3 (0-0.9); MONOCYTES % (AUTO) 11.5 % (2-12); NEUTROPHILS # (AUTO) 3.5 X10'3 (1.8-7.7); PLATELET COUNT 186 X10'3 (140-440); RED BLOOD COUNT 3.43 X10'6 (4.20-5.60); RED CELL DISTRIBUTION WIDTH 16.5 % (11.5-14.5); WHITE BLOOD COUNT 5.7 X10'3 (4.5-11.0)
[2023-12-13 06:55] LABS: ALBUMIN 2.4 G/DL (3.4-5.0); ANION GAP 10 (8-16); BLOOD UREA NITROGEN 32 MG/DL (7-18); BUN/CREATININE RATIO 23.7 (10.0-20.0); CALCIUM 8.9 MG/DL (8.5-10.1); CHLORIDE 109 MMOL/L (99-107); CREATININE 1.35 MG/DL (0.40-0.90); MAGNESIUM 2.3 MG/DL (1.5-2.4); POTASSIUM 4.3 MMOL/L (3.5-5.1); SODIUM 139 MMOL/L (135-145); TOTAL CARBON DIOXIDE 20.4 MMOL/L (24-32); eCRCL 24 ML/MIN; eGFR 37 ML/MIN
[2023-12-13 07:02] LABS: GLUCOSE 123 MG/DL (70-104)
[2023-12-13 07:51] LABS: HBSAG SCREEN Negative (Negative); HEP B CORE AB, IGM Negative (Negative); HEP B CORE AB, TOT Negative (Negative)
[2023-12-13] MEDS: CefTRIAXone/D5W-Rocephin 1gm 50 ML IV SCH (08:42)
[2023-12-14 02:00] VITALS: BP 164/65; PULSE 73; RESP 16; TEMP 96.8; O2SAT 99
[2023-12-14 06:06] VITALS: BP 113/76; PULSE 64; RESP 16; TEMP 97.4
[2023-12-14 06:46] LABS: EOSINOPHILS # (AUTO) 0.3 X10'3 (0-0.9); EOSINOPHILS % (AUTO) 7.2 % (0-6); HEMATOCRIT 27.1 % (35.0-45.0); HEMOGLOBIN 8.9 g/dl (12.0-16.0); LYMPHOCYTES # (AUTO) 1.3 X10'3 (1.1-4.8); LYMPHOCYTES % (AUTO) 26.7 % (21-51); MEAN CORPUSCULAR HEMOGLOBIN 26.6 PG (27.0-31.0); MEAN CORPUSCULAR VOLUME 80.7 FL (78-98); MONOCYTES # (AUTO) 0.6 X10'3 (0-0.9); MONOCYTES % (AUTO) 13.6 % (2-12); NEUTROPHILS # (AUTO) 2.4 X10'3 (1.8-7.7); NEUTROPHILS % (AUTO) 51.5 % (42-75); PLATELET COUNT 177 X10'3 (140-440); RED BLOOD COUNT 3.36 X10'6 (4.20-5.60); RED CELL DISTRIBUTION WIDTH 16.5 % (11.5-14.5); WHITE BLOOD COUNT 4.7 X10'3 (4.5-11.0)
[2023-12-14 07:54] LABS: ALBUMIN 2.4 G/DL (3.4-5.0); ANION GAP 11 (8-16); BLOOD UREA NITROGEN 35 MG/DL (7-18); BUN/CREATININE RATIO 21.7 (10.0-20.0); CALCIUM 9.3 MG/DL (8.5-10.1); CHLORIDE 108 MMOL/L (99-107); CREATININE 1.61 MG/DL (0.40-0.90); GLUCOSE 153 MG/DL (70-104); MAGNESIUM 1.8 MG/DL (1.5-2.4); POTASSIUM 5.1 MMOL/L (3.5-5.1); SODIUM 138 MMOL/L (135-145); TOTAL CARBON DIOXIDE 19.1 MMOL/L (24-32); eCRCL 20 ML/MIN; eGFR 30 ML/MIN
[2023-12-14 08:22] VITALS: RESP 16; O2SAT 94
[2023-12-14] MEDS: ciprofloxacin 250mg tablet PO ONE (09:22)
[2023-12-14 11:11] VITALS: PULSE 60; RESP 10
[2023-12-14] MEDS ORDERED: CLOP75TA34 PO (11:26)
[2023-12-14] MEDS ORDERED: ASPI81TA52 PO ×2 (11:26→11:30)
[2023-12-14] MEDS ORDERED: CIPR250T26 PO (11:28)
[2023-12-14] MEDS ORDERED: CLOP-32 PO (11:30)
[2023-12-14] MEDS: lactose-reduced food (Ensure Enlive) - 237ml bottle PO SCH (13:00)
[2023-12-14] MEDS ORDERED: ciprofloxacin 250mg tablet PO SCH (20:00)
== END 2023-12-14 15:35 | disposition home health service (06) | DRG 64 ==
LOC: ER 15:41 → ED HOLD 17:41 → PCU 3S 12-11 00:57
PROVIDERS: ADMIT Internal Medicine; ATTEND Internal Medicine
DX: I63.89 Other cerebral infarction (principal); G93.41 Metabolic encephalopathy; N17.0 Acute kidney failure with tubular necrosis; E87.1 Hypo-osmolality and hyponatremia; N39.0 Urinary tract infection, site not specified; D64.9 Anemia, unspecified; E03.9 Hypothyroidism, unspecified; E11.22 Type 2 diabetes mellitus with diabetic chronic kidney disease; E78.5 Hyperlipidemia, unspecified; I12.9 Hypertensive chronic kidney disease with stage 1 through stage 4 chronic kidney disease, or unspecified chronic kidney disease; B95.2 Enterococcus as the cause of diseases classified elsewhere; N18.9 Chronic kidney disease, unspecified; Z66 Do not resuscitate; Z79.02 Long term (current) use of antithrombotics/antiplatelets; Z79.4 Long term (current) use of insulin; Z79.899 Other long term (current) drug therapy; Z86.73 Personal history of transient ischemic attack (TIA), and cerebral infarction without residual deficits; Z88.8 Allergy status to other drugs, medicaments and biological substances
CPT/HCPCS: 36415; 70450; 70544; 70547; 70551; 71045; 80048; 80061; 80305; 80320; 81001; 82140; 82948; 83036; 83605; 83735; 84132; 84484; 85025; 85610; 85730; 86704; 86705; 87040; 87077; 87081; 87088; 87186; 87340; 92508; 92616; 93005; 93306; 97116; 97161; 97530; 97535; 99285; A6258; G0378; J0696; J1815; J2060; J3475; J7030; J7040

== ENCOUNTER 2023-12-26 10:02 | Emergency (ER) | payer MEDICARE, OTHER ==
[~2023-12-26] VITALS: Ht 160 cm; Wt 60.0 kg
[~2023-12-26 10:02] MED LIST changes: -AMLO5TAB16 PO; +ASPI81TA52 PO; +CIPR250T26 PO; +CLOP-32 PO; -CLOP75TA34 PO; -FURO20TA4 PO
[2023-12-26 10:54] LABS: BASOPHILS # (AUTO) 0.1 X10'3 (0-0.2); BASOPHILS % (AUTO) 1.2 % (0-1); EOSINOPHILS # (AUTO) 0.3 X10'3 (0-0.9); EOSINOPHILS % (AUTO) 5.1 % (0-6); HEMATOCRIT 25.6 % (35.0-45.0); HEMOGLOBIN 8.5 g/dl (12.0-16.0); LYMPHOCYTES # (AUTO) 1.8 X10'3 (1.1-4.8); LYMPHOCYTES % (AUTO) 27.6 % (21-51); MEAN CORPUSCULAR HGB CONC 33.1 g/dL (33.0-36.5); MEAN CORPUSCULAR VOLUME 81.5 FL (78-98); MEAN PLATELET VOLUME 7.6 FL (7.4-10.4); MONOCYTES # (AUTO) 0.7 X10'3 (0-0.9); MONOCYTES % (AUTO) 11.2 % (2-12); NEUTROPHILS # (AUTO) 3.5 X10'3 (1.8-7.7); NEUTROPHILS % (AUTO) 54.9 % (42-75); PLATELET COUNT 208 X10'3 (140-440); RED BLOOD COUNT 3.14 X10'6 (4.20-5.60); RED CELL DISTRIBUTION WIDTH 16.3 % (11.5-14.5); WHITE BLOOD COUNT 6.4 X10'3 (4.5-11.0)
[2023-12-26 11:11] LABS: ALBUMIN 2.8 G/DL (3.4-5.0); ANION GAP 11 (8-16); BLOOD UREA NITROGEN 32 MG/DL (7-18); BUN/CREATININE RATIO 15.5 (10.0-20.0); CALCIUM 8.3 MG/DL (8.5-10.1); CHLORIDE 106 MMOL/L (99-107); CREATININE 2.06 MG/DL (0.40-0.90); POTASSIUM 4.1 MMOL/L (3.5-5.1); SODIUM 140 MMOL/L (135-145); TOTAL CARBON DIOXIDE 23.2 MMOL/L (24-32); eCRCL 17 ML/MIN; eGFR 23 ML/MIN
[2023-12-26 11:16] LABS: INR 1.1 INR; PROTHROMBIN TIME 11.4 SECONDS (9.0-12.0)
[2023-12-26 11:29] LABS: GLUCOSE 130 MG/DL (70-104)
[2023-12-26 11:41] VITALS: TEMP 97.6
[2023-12-26 12:50] VITALS: BP 184/71; PULSE 65; RESP 20; O2SAT 95
== END 2023-12-26 13:35 | disposition home or self-care (01) ==
LOC: ER 10:02
DX: G45.9 Transient cerebral ischemic attack, unspecified (principal); E78.00 Pure hypercholesterolemia, unspecified; I10 Essential (primary) hypertension; E11.9 Type 2 diabetes mellitus without complications; E03.9 Hypothyroidism, unspecified; Z88.8 Allergy status to other drugs, medicaments and biological substances; Z79.82 Long term (current) use of aspirin; Z79.899 Other long term (current) drug therapy
CPT/HCPCS: 36415; 70450; 80048; 85025; 85610; 93005; 99285

== ENCOUNTER 2023-12-31 23:52 | Inpatient (IN) | payer MEDICARE, OTHER ==
[~2023-12-31] VITALS: Ht 152.4 cm; Wt 51.0 kg
[2023-12-31] MEDS ORDERED: iohexol 350MG/ML 100ml bottle IV ONE (23:56)
[2024-01-01 00:31] LABS: BASOPHILS # (AUTO) 0.1 X10'3 (0-0.2); BASOPHILS % (AUTO) 1.3 % (0-1); EOSINOPHILS # (AUTO) 0.5 X10'3 (0-0.9); EOSINOPHILS % (AUTO) 7.3 % (0-6); HEMATOCRIT 29.1 % (35.0-45.0); HEMOGLOBIN 9.6 g/dl (12.0-16.0); LYMPHOCYTES # (AUTO) 2.2 X10'3 (1.1-4.8); LYMPHOCYTES % (AUTO) 30.1 % (21-51); MEAN CORPUSCULAR HGB CONC 33.1 g/dL (33.0-36.5); MEAN CORPUSCULAR VOLUME 81.7 FL (78-98); MEAN PLATELET VOLUME 7.7 FL (7.4-10.4); MONOCYTES # (AUTO) 0.8 X10'3 (0-0.9); MONOCYTES % (AUTO) 11.4 % (2-12); NEUTROPHILS # (AUTO) 3.6 X10'3 (1.8-7.7); NEUTROPHILS % (AUTO) 49.9 % (42-75); PLATELET COUNT 215 X10'3 (140-440); RED BLOOD COUNT 3.56 X10'6 (4.20-5.60); RED CELL DISTRIBUTION WIDTH 15.8 % (11.5-14.5); WHITE BLOOD COUNT 7.2 X10'3 (4.5-11.0)
[2024-01-01] MEDS: aspirin 325mg tablet PO ONE (00:37)
[2024-01-01 00:45] LABS: ANION GAP 9 (8-16); CHLORIDE 104 MMOL/L (99-107); GLUCOSE 82 MG/DL (70-104); POTASSIUM 5.5 MMOL/L (3.5-5.1); SODIUM 137 MMOL/L (135-145); TOTAL CARBON DIOXIDE 24.5 MMOL/L (24-32)
[2024-01-01 00:46] LABS: ALBUMIN/GLOBULIN RATIO 0.6 (1.1-1.5); BILIRUBIN,TOTAL 0.3 MG/DL (0.1-1.0); BLOOD UREA NITROGEN 41 MG/DL (7-18); BUN/CREATININE RATIO 21.5 (10.0-20.0); CALCIUM 9.3 MG/DL (8.5-10.1); CREATININE 1.91 MG/DL (0.40-0.90); MAGNESIUM 1.4 MG/DL (1.5-2.4); TOTAL PROTEIN 8.1 G/DL (6.4-8.2); eCRCL 15 ML/MIN; eGFR 25 ML/MIN
[2024-01-01 00:47] LABS: ALANINE AMINOTRANSFERASE 15 U/L (12-78); ALKALINE PHOSPHATASE 74 IU/L (46-116); ASPARTATE AMINO TRANSFERASE 17 U/L (10-37)
[2024-01-01 00:52] LABS: APTT 23 SECONDS (22-32); PROTHROMBIN TIME 11.2 SECONDS (9.0-12.0)
[2024-01-01 01:28] LABS: BILIRUBIN,URINE NEGATIVE (Neg); CLARITY,URINE CLEAR (Clear); COLOR,URINE STRAW (Yellow); GLUCOSE, URINE NEGATIVE (Neg); KETONES,URINE NEGATIVE (Neg); LEUKOCYTE ESTERASE ,URINE NEGATIVE (Neg); NITRITES, URINE NEGATIVE (Neg); OCCULT BLOOD,URINE TRACE-INTACT (Neg); PROTEIN,URINE 30 mg/dl (Neg); UROBILINOGEN,URINE 0.2 E.U/dL (0.2-1.0)
[2024-01-01 01:34] LABS: UA COLLECTION TYPE URINAL
[2024-01-01 01:37] LABS: BACTERIA,URINE NONE SEEN /HPF (Neg); MUCUS STRANDS NONE SEEN /LPF (Neg); RBC,URINE 0-2 /HPF (0-2); SQUAMOUS EPITHELIAL CELL,UR FEW /LPF (FEW); WBC,URINE 0-4 /HPF (0-4)
[2024-01-01] MEDS ORDERED: glucagon, human recombinant 1mg kit SUBCUT PRN (04:30)
[2024-01-01] MEDS ORDERED: dextrose 50%-water 50ml dispensing syringe IV PRN ×2 (04:30)
[2024-01-01] MEDS ORDERED: magnesium 4gm in 100ml NS 100 ML IV PRN (04:30)
[2024-01-01] MEDS ORDERED: acetaminophen 325mg tablet PO PRN (04:30)
[2024-01-01] MEDS ORDERED: DEXTROSE 15 GM of carb/4 tabs (each vial/BOTTLE has 4 tablets) PO PRN ×2 (04:30)
[2024-01-01] MEDS ORDERED: potassium Cl 40MEQ/1/2NS 520ml 520 ML IV PRN (04:30)
[2024-01-01] MEDS ORDERED: magnesium Cl slow-release 64mg tablet PO PRN (04:30)
[2024-01-01] MEDS ORDERED: magnesium hydroxide 30ml (MOM) UD suspension PO PRN (04:30)
[2024-01-01] MEDS ORDERED: mag hydrox/Alum hydrox/simeth 30ml oral suspension PO PRN (04:30)
[2024-01-01] MEDS ORDERED: potassium Cl 20 mEq SR tablet PO PRN ×2 (04:30)
[2024-01-01] MEDS ORDERED: ondansetron/PF 4mg/2ml inj IV PRN (04:30)
[2024-01-01] MEDS ORDERED: magnesium 2GM in 50ml NS 50 ML IV PRN (04:30)
[2024-01-01] MEDS ORDERED: insulin Lispro (HumaLOG) vial - multi-dose SQ SCH (04:30)
[2024-01-01] MEDS: MESSAGE TO PHARMACY PO ONE (05:23)
[2024-01-01] MEDS: magnesium 2GM in 50ml NS 50 ML IV ONE (05:50)
[2024-01-01 07:30] VITALS: BP 178/55; PULSE 67; RESP 14; TEMP 99.6; O2SAT 91
[2024-01-01] MEDS: K and/or MAG REPLACEMENT MC SCH (08:00)
[2024-01-01] MEDS: docusate sod 100mg capsule PO SCH (08:02)
[2024-01-01] MEDS: clopidogrel 75mg tablet PO SCH (08:02)
[2024-01-01] MEDS: heparin, porcine 5000 units/ml vial SQ SCH (08:02)
[2024-01-01] MEDS: aspirin 81mg, enteric-coated 1 TAB TABLET.DR PO SCH (08:02)
[2024-01-01] MEDS: atorvastatin 20mg tablet PO SCH (08:03)
[2024-01-01 08:24] LABS: IRON 31 UG/DL (49-151)
[2024-01-01 08:39] LABS: CHOL/HDL RATIO 3.2 (0.00-4.99); CHOLESTEROL 102 MG/DL (0-200); FERRITIN 178 NG/ML (8-252); FREE T4 (FREE THYROXINE) 1.22 NG/DL (0.73-1.40); HDL CHOLESTEROL 32 MG/DL (35-60); LDL CHOLESTEROL 51 MG/DL (50-100); POTASSIUM 4.7 MMOL/L (3.5-5.1); THYROID STIMULATING HORMONE 4.21 ulU/ml (0.34-4.50); TRIGLYCERIDES 73 MG/DL (20-135)
[2024-01-01 10:00] VITALS: BP 171/52; PULSE 64; RESP 15; TEMP 98.3; O2SAT 100
[2024-01-01] MEDS ORDERED: CLOP-32 PO (13:33)
[2024-01-01] MEDS ORDERED: ATOR20TA66 PO (13:33)
[2024-01-01] MEDS ORDERED: insulin glargine (Lantus) pen - multi-dose SQ SCH (21:00)
== END 2024-01-01 16:08 | disposition home or self-care (01) | DRG 69 ==
LOC: ER 23:52 → UNDOADMIN 01-01 04:33 → ED HOLD 01-01 04:33 → EDBEDREQTM 01-01 06:48 → ED HOLD 01-01 07:33 → ORTHO 4S 01-01 07:33 → UNDODISIN 01-01 16:08
PROVIDERS: ADMIT Internal Medicine Critical Care Medicine; ATTEND Internal Medicine
DX: G45.9 Transient cerebral ischemic attack, unspecified (principal); N18.4 Chronic kidney disease, stage 4 (severe); C46.7 Kaposi's sarcoma of other sites; D64.9 Anemia, unspecified; E83.42 Hypomagnesemia; E86.0 Dehydration; E87.5 Hyperkalemia; I12.9 Hypertensive chronic kidney disease with stage 1 through stage 4 chronic kidney disease, or unspecified chronic kidney disease; E11.22 Type 2 diabetes mellitus with diabetic chronic kidney disease; E03.9 Hypothyroidism, unspecified; D72.10 Eosinophilia, unspecified; F03.90 Unspecified dementia, unspecified severity, without behavioral disturbance, psychotic disturbance, mood disturbance, and anxiety; Z20.822 Contact with and (suspected) exposure to COVID-19; E78.00 Pure hypercholesterolemia, unspecified; M81.0 Age-related osteoporosis without current pathological fracture; R29.810 Facial weakness; Z79.02 Long term (current) use of antithrombotics/antiplatelets; Z86.73 Personal history of transient ischemic attack (TIA), and cerebral infarction without residual deficits; Z82.5 Family history of asthma and other chronic lower respiratory diseases; Z74.01 Bed confinement status; Z88.8 Allergy status to other drugs, medicaments and biological substances; Z79.82 Long term (current) use of aspirin; Z79.899 Other long term (current) drug therapy
CPT/HCPCS: 36415; 70450; 71045; 80053; 80061; 81001; 82728; 82948; 83540; 83735; 84132; 84439; 84443; 85025; 85610; 85730; 87811; 92508; 92616; 93005; 99291; G0378; J1644; J1815; J3475; J3490; Q9967

== ENCOUNTER 2024-01-31 13:38 | Outpatient (CLI) | payer MEDICARE, OTHER ==
[~2024-01-31 13:38] MED LIST changes: +ATOR20TA66 PO; -CIPR250T26 PO; -SIMV-42 PO
== END 2024-01-31 23:59 | disposition home or self-care (01) ==
LOC: RAD 13:38
PROVIDERS: ATTEND Nurse Practitioner Family
DX: N18.9 Chronic kidney disease, unspecified (principal); N28.1 Cyst of kidney, acquired
CPT/HCPCS: 76770; 93975

== ENCOUNTER 2024-07-29 17:52 | Inpatient (IN) | payer MEDICARE, MEDICAID ==
[~2024-07-29] VITALS: Ht 152.4 cm; Wt 45.9 kg
[~2024-07-29 17:52] MED LIST changes: +AMLO2.5T2 PO; -ASPI81TA52 PO; -ATOR20TA66 PO; +CALC-965 PO; -CARV25TA56 PO; +CARV6.253 PO; +FERR324T4 PO; -INSU100I8 SQ; +MAGN500C4 PO; +MECO10005 PO; +ROSU10TA72 PO
[2024-07-29 18:27] LABS: BASOPHILS % (AUTO) 0.8 % (0-1); EOSINOPHILS # (AUTO) 0.2 X10'3 (0-0.9); EOSINOPHILS % (AUTO) 3.5 % (0-6); HEMATOCRIT 28.8 % (35.0-45.0); HEMOGLOBIN 9.4 g/dl (12.0-16.0); LYMPHOCYTES % (AUTO) 31.5 % (21-51); MEAN CORPUSCULAR HEMOGLOBIN 26.8 PG (27.0-31.0); MEAN CORPUSCULAR HGB CONC 32.5 g/dL (33.0-36.5); MEAN CORPUSCULAR VOLUME 82.5 FL (78-98); MEAN PLATELET VOLUME 7.7 FL (7.4-10.4); MONOCYTES # (AUTO) 0.9 X10'3 (0-0.9); MONOCYTES % (AUTO) 14.1 % (2-12); NEUTROPHILS # (AUTO) 3.1 X10'3 (1.8-7.7); NEUTROPHILS % (AUTO) 50.1 % (42-75); PLATELET COUNT 201 X10'3 (140-440); RED BLOOD COUNT 3.49 X10'6 (4.20-5.60); RED CELL DISTRIBUTION WIDTH 16.4 % (11.5-14.5); WHITE BLOOD COUNT 6.3 X10'3 (4.5-11.0)
[2024-07-29 18:42] LABS: APTT 21 SECONDS (22-32); INR 1.1 INR
[2024-07-29 18:45] LABS: ALBUMIN 2.7 G/DL (3.4-5.0); ANION GAP 10 (8-16); BLOOD UREA NITROGEN 50 MG/DL (7-18); BUN/CREATININE RATIO 21.3 (10.0-20.0); CALCIUM 9.6 MG/DL (8.5-10.1); CHLORIDE 105 MMOL/L (99-107); CREATININE 2.35 MG/DL (0.40-0.90); SODIUM 136 MMOL/L (135-145); TOTAL CARBON DIOXIDE 21.4 MMOL/L (24-32); eCRCL 12 ML/MIN; eGFR 20 ML/MIN
[2024-07-29 19:15] LABS: GLUCOSE 134 MG/DL (70-104)
[2024-07-29] MEDS ORDERED: morphine 2 MG/ML inj. syringe IV PRN ×2 (19:45)
[2024-07-29] MEDS ORDERED: magnesium sulf-water 2g/50mL 50 ML IV PRN (19:45)
[2024-07-29] MEDS ORDERED: potassium Cl 40MEQ/1/2NS 520ml 520 ML IV PRN (19:45)
[2024-07-29] MEDS ORDERED: mag hydrox/Alum hydrox/simeth 30ml oral suspension PO PRN (19:45)
[2024-07-29] MEDS: normal saline 1000ml 1,000 ML IV SCH (19:45)
[2024-07-29] MEDS ORDERED: magnesium hydroxide 30ml (MOM) UD suspension PO PRN (19:45)
[2024-07-29] MEDS ORDERED: magnesium sulf-water 4G/100mL 100 ML IV PRN (19:45)
[2024-07-29] MEDS ORDERED: ondansetron/PF 4mg/2ml inj IV PRN (19:45)
[2024-07-29] MEDS ORDERED: potassium Cl 20 mEq SR tablet PO PRN ×2 (19:45)
[2024-07-29] MEDS: Melatonin 3mg tablet PO SCH ×2 (19:51→21:00)
[2024-07-29] MEDS: K and/or MAG REPLACEMENT MC SCH (20:00)
[2024-07-29 20:01] LABS: BILIRUBIN,URINE NEGATIVE (Neg); CLARITY,URINE CLEAR (Clear); COLOR,URINE YELLOW (Yellow); GLUCOSE, URINE 100 mg/dl (Neg); KETONES,URINE NEGATIVE (Neg); LEUKOCYTE ESTERASE ,URINE TRACE (Neg); NITRITES, URINE NEGATIVE (Neg); OCCULT BLOOD,URINE TRACE-INTACT (Neg); PROTEIN,URINE 100 mg/dl (Neg); UROBILINOGEN,URINE 0.2 E.U/dL (0.2-1.0)
[2024-07-29 20:18] LABS: HEMOGLOBIN A1C 6.5 % (4.5-6.2)
[2024-07-29 20:19] LABS: UA COLLECTION TYPE CLN CATCH MIDSTREAM
[2024-07-29 20:20] LABS: AMORPHOUS URATES 1+; BACTERIA,URINE FEW /HPF (Neg); RBC,URINE 0-2 /HPF (0-2); SQUAMOUS EPITHELIAL CELL,UR FEW /LPF (FEW)
[2024-07-29 20:21] LABS: MUCUS STRANDS FEW /LPF (Neg); TRANSITIONAL EPI CELLS,URINE FEW /HPF
[2024-07-29] MEDS ORDERED: CEFD300C17 (20:41)
[2024-07-29] MEDS ORDERED: CARV12.549 PO (20:41)
[2024-07-29] MEDS ORDERED: HYDRALAZINE PO (20:41)
[2024-07-29] MEDS ORDERED: PREG25CA19 PO (20:41)
[2024-07-29] MEDS: docusate sod 100mg capsule PO SCH (21:09)
[2024-07-29] MEDS: niCARDipine-NS 40mg/200ml IVPB 200 ML IV SCH (21:09)
[2024-07-29 21:53] LABS: URINE AMPHETAMINE SCREEN NEGATIVE (Neg); URINE BARBITUATE SCREEN NEGATIVE (Neg); URINE BENZODIAZEPINES SCREEN NEGATIVE (Neg); URINE CANNABINOID SCREEN NEGATIVE (Neg); URINE COCAINE SCREEN NEGATIVE (Neg); URINE METHADONE SCREEN NEGATIVE (Neg); URINE OPIATE SCREEN NEGATIVE (Neg); URINE PHENCYCLIDINE SCREEN NEGATIVE (Neg)
[2024-07-29] MEDS ORDERED: dextrose 50%-water 50ml dispensing syringe IV PRN ×2 (23:00)
[2024-07-29] MEDS ORDERED: glucagon, human recombinant 1mg kit SUBCUT PRN (23:00)
[2024-07-29] MEDS ORDERED: DEXTROSE 15 GM of carb/4 tabs (each vial/BOTTLE has 4 tablets) PO PRN ×2 (23:00)
[2024-07-29] MEDS: amLODIPine 2.5mg tablet PO SCH (23:12)
[2024-07-29] MEDS: LORazepam 2 mg/ml vial IV PRN (23:13)
[2024-07-29 23:30] LABS: THYROID STIMULATING HORMONE 3.64 ulU/ml (0.34-4.50)
[2024-07-30] VITALS (7 sets, daily range): BP systolic 151–168; BP diastolic 43–56; PULSE 57–71; RESP 14–19; TEMP 97.6–99; O2SAT 98–99
[2024-07-30 06:37] LABS: BASOPHILS # (AUTO) 0.1 X10'3 (0-0.2); BASOPHILS % (AUTO) 1.2 % (0-1); EOSINOPHILS # (AUTO) 0.2 X10'3 (0-0.9); EOSINOPHILS % (AUTO) 3.6 % (0-6); HEMATOCRIT 28.2 % (35.0-45.0); HEMOGLOBIN 9.1 g/dl (12.0-16.0); LYMPHOCYTES # (AUTO) 1.6 X10'3 (1.1-4.8); LYMPHOCYTES % (AUTO) 33.6 % (21-51); MEAN CORPUSCULAR HEMOGLOBIN 26.6 PG (27.0-31.0); MEAN CORPUSCULAR HGB CONC 32.5 g/dL (33.0-36.5); MEAN CORPUSCULAR VOLUME 81.9 FL (78-98); MEAN PLATELET VOLUME 7.8 FL (7.4-10.4); MONOCYTES # (AUTO) 0.6 X10'3 (0-0.9); MONOCYTES % (AUTO) 12.4 % (2-12); NEUTROPHILS # (AUTO) 2.4 X10'3 (1.8-7.7); NEUTROPHILS % (AUTO) 49.2 % (42-75); PLATELET COUNT 174 X10'3 (140-440); RED BLOOD COUNT 3.44 X10'6 (4.20-5.60); RED CELL DISTRIBUTION WIDTH 16.2 % (11.5-14.5); WHITE BLOOD COUNT 4.9 X10'3 (4.5-11.0)
[2024-07-30 06:52] LABS: ALANINE AMINOTRANSFERASE 17 U/L (12-78); ALBUMIN 2.5 G/DL (3.4-5.0); ALBUMIN/GLOBULIN RATIO 0.5 (1.1-1.5); ALKALINE PHOSPHATASE 70 IU/L (46-116); ANION GAP 7 (8-16); ASPARTATE AMINO TRANSFERASE 14 U/L (10-37); BILIRUBIN,TOTAL 0.2 MG/DL (0.1-1.0); BLOOD UREA NITROGEN 48 MG/DL (7-18); BUN/CREATININE RATIO 21.8 (10.0-20.0); CALCIUM 9.8 MG/DL (8.5-10.1); CHLORIDE 108 MMOL/L (99-107); CHOL/HDL RATIO 2.9 (0.00-4.99); CHOLESTEROL 98 MG/DL (0-200); GLUCOSE 129 MG/DL (70-104); HDL CHOLESTEROL 34 MG/DL (35-60); LDL CHOLESTEROL 55 MG/DL (50-100); MAGNESIUM 1.3 MG/DL (1.5-2.4); POTASSIUM 3.9 MMOL/L (3.5-5.1); SODIUM 136 MMOL/L (135-145); TOTAL CARBON DIOXIDE 21.3 MMOL/L (24-32); TOTAL PROTEIN 7.3 G/DL (6.4-8.2); TRIGLYCERIDES 51 MG/DL (20-135); eCRCL 13 ML/MIN; eGFR 21 ML/MIN
[2024-07-30] MEDS: INSULIN LISPRO 100 UNIT/ML INSULN.PEN MULTI-DOSE SQ SCH (07:00)
[2024-07-30] MEDS: MECOBALAMIN PO SCH (08:00)
[2024-07-30] MEDS: normal saline 1000ml 1,000 ML IV SCH (08:40)
[2024-07-30] MEDS: carVEDilol 12.5mg tablet PO SCH (09:51)
[2024-07-30] MEDS: levoTHYROXINE 88mcg tablet PO SCH (09:51)
[2024-07-30] MEDS: ROSUVASTATIN CALCIUM 5 MG TABLET PO SCH (09:56)
[2024-07-30] MEDS: magnesium Cl slow-release 64mg tablet PO PRN (11:27)
[2024-07-30] MEDS: aspirin 81mg, enteric-coated 1 TAB TABLET.DR PO ONE (12:35)
[2024-07-30] MEDS: CefTRIAXone/D5W-Rocephin 1gm 50 ML IV SCH (12:49)
[2024-07-30] MEDS: pregabalin 25mg capsule PO SCH (20:08)
[2024-07-30] MEDS: losartan 50mg tablet PO SCH (20:12)
[2024-07-30] MEDS: clopidogrel 75mg tablet PO SCH (20:12)
[2024-07-30] MEDS: heparin, porcine 5000 units/ml vial SQ SCH (20:13)
[2024-07-30] MEDS: acetaminophen 325mg tablet PO PRN (21:20)
[2024-07-31] MEDS: hydrALAZINE 20mg/ml inj. IV PRN (04:56)
[2024-07-31 06:00] VITALS: BP 170/54; PULSE 62; RESP 17; TEMP 97.8; O2SAT 98
[2024-07-31 07:23] LABS: ALANINE AMINOTRANSFERASE 38 U/L (12-78); ALBUMIN 2.3 G/DL (3.4-5.0); ALBUMIN/GLOBULIN RATIO 0.5 (1.1-1.5); ALKALINE PHOSPHATASE 69 IU/L (46-116); ANION GAP 9 (8-16); ASPARTATE AMINO TRANSFERASE 60 U/L (10-37); BILIRUBIN,TOTAL 0.2 MG/DL (0.1-1.0); BLOOD UREA NITROGEN 46 MG/DL (7-18); BUN/CREATININE RATIO 20.7 (10.0-20.0); CALCIUM 9.8 MG/DL (8.5-10.1); CHLORIDE 108 MMOL/L (99-107); CREATININE 2.22 MG/DL (0.40-0.90); GLUCOSE 131 MG/DL (70-104); MAGNESIUM 1.5 MG/DL (1.5-2.4); POTASSIUM 4.6 MMOL/L (3.5-5.1); SODIUM 135 MMOL/L (135-145); TOTAL CARBON DIOXIDE 18.4 MMOL/L (24-32); TOTAL PROTEIN 7.1 G/DL (6.4-8.2); eCRCL 13 ML/MIN; eGFR 21 ML/MIN
[2024-07-31] MEDS: aspirin 81mg, enteric-coated 1 TAB TABLET.DR PO SCH (07:31)
[2024-07-31 07:41] LABS: BASOPHILS % (AUTO) 0.9 % (0-1); EOSINOPHILS # (AUTO) 0.2 X10'3 (0-0.9); EOSINOPHILS % (AUTO) 3.8 % (0-6); HEMOGLOBIN 9.6 g/dl (12.0-16.0); LYMPHOCYTES # (AUTO) 1.2 X10'3 (1.1-4.8); LYMPHOCYTES % (AUTO) 28.7 % (21-51); MEAN CORPUSCULAR HEMOGLOBIN 26.5 PG (27.0-31.0); MEAN CORPUSCULAR HGB CONC 31.9 g/dL (33.0-36.5); MEAN PLATELET VOLUME 8.3 FL (7.4-10.4); MONOCYTES # (AUTO) 0.5 X10'3 (0-0.9); MONOCYTES % (AUTO) 12.5 % (2-12); NEUTROPHILS # (AUTO) 2.3 X10'3 (1.8-7.7); NEUTROPHILS % (AUTO) 54.1 % (42-75); PLATELET COUNT 164 X10'3 (140-440); RED BLOOD COUNT 3.62 X10'6 (4.20-5.60); RED CELL DISTRIBUTION WIDTH 16.6 % (11.5-14.5); WHITE BLOOD COUNT 4.3 X10'3 (4.5-11.0)
[2024-07-31 08:00] VITALS: RESP 16; O2SAT 98
[2024-07-31 09:51] VITALS: BP 110/65; PULSE 60; RESP 18; TEMP 97.7; O2SAT 100
[2024-07-31 10:00] VITALS: BP 110/65; PULSE 60; RESP 18; TEMP 97.7; O2SAT 100
[2024-07-31] MEDS ORDERED: ASPI-1071 PO (16:03)
[2024-07-31] MEDS ORDERED: CLOP75TA34 PO (16:03)
[2024-08-01 08:26] LABS: ANTISTREPTOLYSIN O AB 38.4 IU/mL (0.0-200.0); COMPLEMENT C3, SERUM 122 mg/dL (82-167); COMPLEMENT C4, SERUM 17 mg/dL (12-38)
[2024-08-01 11:31] LABS: ANTINUCLEAR ANTIBODIES Negative (Negative)
[2024-08-03 14:17] LABS: ATYPICAL PANCA <1:20 titer (Neg:<1:20); CYTOPLASMIC (C-ANCA) <1:20 titer (Neg:<1:20); PERINUCLEAR (P-ANCA) <1:20 titer (Neg:<1:20)
[2024-08-04 11:30] LABS: A/G RATIO 0.6 (0.7-1.7); ALBUMIN 2.6 g/dL (2.9-4.4); ALPHA-1-GLOBULIN 0.3 g/dL (0.0-0.4); ALPHA-2-GLOBULIN 0.7 g/dL (0.4-1.0); BETA GLOBULIN 0.7 g/dL (0.7-1.3); GAMMA GLOBULIN 2.4 g/dL (0.4-1.8); GLOBULIN, TOTAL 4.2 g/dL (2.2-3.9); M-SPIKE Not Observed g/dL (Not Observed); PROTEIN, TOTAL, SERUM 6.8 g/dL (6.0-8.5)
== END 2024-07-31 17:45 | disposition home health service (06) | DRG 64 ==
LOC: ER 17:53 → ED HOLD 19:53 → ORTHO 4S 07-30 00:54
PROVIDERS: ADMIT Internal Medicine Critical Care Medicine; ATTEND Internal Medicine
PROC: 4A00X4Z Measurement of Central Nervous Electrical Activity, External Approach (ICD-10-PCS; principal; 2024-07-31)
DX: I63.9 Cerebral infarction, unspecified (principal); N17.0 Acute kidney failure with tubular necrosis; I67.4 Hypertensive encephalopathy; I16.1 Hypertensive emergency; C46.9 Kaposi's sarcoma, unspecified; N18.4 Chronic kidney disease, stage 4 (severe); E11.22 Type 2 diabetes mellitus with diabetic chronic kidney disease; D64.9 Anemia, unspecified; E78.00 Pure hypercholesterolemia, unspecified; E03.9 Hypothyroidism, unspecified; Z66 Do not resuscitate; I12.9 Hypertensive chronic kidney disease with stage 1 through stage 4 chronic kidney disease, or unspecified chronic kidney disease; F03.90 Unspecified dementia, unspecified severity, without behavioral disturbance, psychotic disturbance, mood disturbance, and anxiety; J43.9 Emphysema, unspecified; Z88.8 Allergy status to other drugs, medicaments and biological substances; Z79.899 Other long term (current) drug therapy; Z79.01 Long term (current) use of anticoagulants; Z86.73 Personal history of transient ischemic attack (TIA), and cerebral infarction without residual deficits
CPT/HCPCS: 36415; 70450; 70551; 71045; 80048; 80053; 80061; 80305; 81001; 82140; 82595; 82948; 83036; 83605; 83735; 84145; 84155; 84165; 84443; 85025; 85610; 85730; 86038; 86060; 86160; 86256; 87081; 87088; 92508; 92616; 93005; 95816; 97116; 97161; 97530; 99291; G0378; J0360; J0696; J1644; J3490; J7030